=== PATIENT | male | born 1950 | race Caucasian/White ===

== ENCOUNTER 2017-03-18 14:02 | Inpatient (IN) | payer OTHER ==
[~2017-03-18] VITALS: Ht 185.4 cm; Wt 121.4 kg
[~2017-03-18 14:02] MED LIST: ALBUTEROL SULF8.5 GM IH; ASPIR 8181 M1 PO; ATORVASTATIN CA40 MG PO; Aspirin Chewable PO; BABY ASPIRIN81 M1; BENECAR; BENICAR HCT 401 EAC1 PO; BENICAR40 MG PO; Benicar HCT 40/25 PO; CLARITIN,ALAVAR10 MG PO; CLEOCIN300 MG PO; COMBIVENT RESPIM4 GM IH; COZAAR50 MG PO; CYANOCOBALAM1000 MCG PO; FLINTSTONES COM18 MG PO; FLINTSTONES1 EACH PO; FLUNISOLIDE25 ML BOTH NARES; GLUCOSAMINE HC500 MG PO; HYDROCHLOROTHIA25 MG PO; HYDROCODON-ACE1 EAC7 PO; LIPITOR20 MG PO; LIPITOR40 MG PO; LOSARTAN POTAS100 MG PO; LamiSIL PO; MONTELUKAST SOD10 MG PO; MULTIVITAMIN1 EAC2 PO; NAPROSYN500 MG PO; NEOSPORIN ANT70.8 GM TP; NICOTINE PATCH1 EACH TD; TYLENOL EXTRA500 MG PO; VITAMIN B COMP1 EACH PO
[2017-03-18 15:01] LABS: HEMATOCRIT 40.4 % (38.0-50.0); MCH 30.8 PG (29.0-34.0); MCHC 34.4 G/DL (30.0-36.0); MCV 89.6 FL (86-99); MEAN PLAT.VOLUME 9.4 uM^3 (9.0-12.4); PLATELET COUNT 210 K/uL (156-360); RBC DIS.WIDTH-CV 12.1 % (11.8-14.6); RBC DIS.WIDTH-SD 39.5 % (39-53); RED BLOOD COUNT 4.51 M/uL (4.00-5.50); WHITE BLOOD COUNT 7.5 K/uL (4.1-10.2)
[2017-03-18 15:12] LABS: CHLORIDE 108 mEq/L (99-109); POTASSIUM 3.5 mEq/L (3.7-5.4); SODIUM 143 mEq/L (136-147)
[2017-03-18 15:14] LABS: GLUCOSE 107 mg/dL (70-99)
[2017-03-18 15:15] LABS: ANION GAP 11 MEQ/L (2-14)
[2017-03-18 15:18] LABS: GFR ESTIMATE (CALCULATED) > 59 mL/min/
[2017-03-18 15:19] LABS: UREA NITROGEN (BUN) 22 mg/dL (9-23)
[2017-03-18 17:19] LABS: TROP-I INTERPRETATION NEGATIVE; TROPONIN-I < 0.01 ng/mL (0.0-0.30)
[2017-03-18] MEDS ORDERED: CENTRUM SILVER1 EAC3 PO (18:57)
[2017-03-18] MEDS ORDERED: COZAAR100 MG PO (18:57)
[2017-03-18] MEDS ORDERED: VITAMIN B-125000 MC1 PO (18:58)
[2017-03-18] MEDS ORDERED: MAXZIDE 37.5 M1 EACH PO (18:58)
[2017-03-18] MEDS ORDERED: TRIPLE FLEX CA1 EACH PO (18:58)
[2017-03-18] MEDS ORDERED: TYLENOL EXTRA500 MG PO (18:59)
[2017-03-18] MEDS ORDERED: GLUCOSAMINE-CH1 EA50 PO (18:59)
[2017-03-18] MEDS ORDERED: AFRIN,GENASAL D15 ML BOTH NARES (19:00)
[2017-03-18 22:14] VITALS: BP 150/70
[2017-03-19 00:01] LABS: TROP-I INTERPRETATION NEGATIVE; TROPONIN-I < 0.01 ng/mL (0.0-0.30)
[2017-03-19 07:08] VITALS: BP 108/67
[2017-03-19 07:14] LABS: TROP-I INTERPRETATION NEGATIVE; TROPONIN-I 0.01 ng/mL (0.0-0.30)
[2017-03-19 08:53] LABS: ANION GAP 10 MEQ/L (2-14); CHLORIDE 109 MEQ/L (99-109); GFR ESTIMATE (CALCULATED) > 59 mL/min/; GLUCOSE 102 mg/dL (70-99); POTASSIUM 3.8 MEQ/L (3.7-5.4); SAMPLE HEMOLYSIS CHECK 0; SAMPLE ICTERIC CHECK 0; SAMPLE LIPEMIA CHECK 0; SODIUM 144 MEQ/L (136-147); UREA NITROGEN (BUN) 23 mg/dL (9-23)
== END 2017-03-19 14:22 | disposition home or self-care (01) | DRG 312 ==
LOC: EXP 14:02 → EME 14:02 → EDOF 19:53 → 5EAST 22:00
PROVIDERS: Internal Medicine
DX: R55 Syncope and collapse (principal); R00.1 Bradycardia, unspecified; I95.9 Hypotension, unspecified; R94.31 Abnormal electrocardiogram [ECG] [EKG]; G47.33 Obstructive sleep apnea (adult) (pediatric); I10 Essential (primary) hypertension; E78.2 Mixed hyperlipidemia; J44.9 Chronic obstructive pulmonary disease, unspecified; K21.9 Gastro-esophageal reflux disease without esophagitis; F17.210 Nicotine dependence, cigarettes, uncomplicated; E66.9 Obesity, unspecified; Z68.35 Body mass index [BMI] 35.0-35.9, adult; Z98.84 Bariatric surgery status; Z80.0 Family history of malignant neoplasm of digestive organs; Z80.8 Family history of malignant neoplasm of other organs or systems; Z82.49 Family history of ischemic heart disease and other diseases of the circulatory system; Z82.61 Family history of arthritis
CPT/HCPCS: 71020; 74177; 80048; 84443; 84484; 85027; 93005; 99202; 99281; 99285; J1650; J7030